=== PATIENT | male | born 1980 | race Caucasian/White ===

== ENCOUNTER 2017-04-15 10:12 | Emergency (ER) | payer BC ==
[~2017-04-15] VITALS: Ht 172.7 cm; Wt 82.1 kg
[2017-04-15 10:14] VITALS: BP 143/83; PULSE 76; TEMP 36.5; O2SAT 97; Ht 172.7 cm; Wt 82.1 kg
[2017-04-15] MEDS ORDERED: LIDOCAINE HCL 1% 20 ML VIAL ONE (10:29)
--- NOTE | 2017-04-15 16:22 | EMERGENCY ROOM VISIT NOTE ---
History First contact with patient: 10:22 Chief Complaint: LACERATION/CUT (SUT/DERMABOND) Stated Complaint: CUT FINGER Nursing Triage Summary: pt cut thumb with kitchen knife History of Present Illness The patient is a 36 year old male who presents to the Emergency Room with complaints of a laceration to his right thumb. The patient reports accidentally cutting it with a ceramic knife. He does report notable bleeding, and rates his discomfort a 5 out of 10. The patient is [id number]. Tetanus immunization is up-to-date. Review of Systems 6 system review was performed and was negative except for pertinent positives and negatives as indicated in history of present illness Past Medical/Surgical History Medical Problems: (1) No significant past medical history Surgical Problems: (1) No history of previous surgery Family History Unremarkable Social History Smoking Status: Never Smoker Alcohol Use: occasionally Marital Status: Housing Status: lives with family Occupation Status: employed Current/Historical Medications No Active Prescriptions or Reported Meds Physical Exam Vital Signs Date Time Temp Pulse Resp B/P (MAP) Pulse Ox O2 Delivery O2 Flow Rate FiO2 04/15/17 10:14 36.5 76 18 143/83 97 Room Air Physical Exam CONSTITUTIONAL: Healthy and well nourished. Alert and oriented X 3 with positive affect. HEENT: Normocephalic, atraumatic. Pupils equal, round and reactive. MUSCULOSKELETAL: Examination of the right thumb pad shows a 4 cm laceration with notable gaping and mild active bleeding. The laceration does not involve the nail plate. Capillary refill is less than 2 seconds. He is able to flex the finger against resistance. INTEGUMENTARY: No rash or other significant dermatologic conditions noted. NEUROLOGIC: Right thumb tip is sensory intact. Medical Decision & Procedures Procedure Laceration repair was performed under digital block anesthesia after receiving verbal consent from the patient. Using buffered 1% lidocaine without epinephrine, good digital block anesthesia was administered. Was then peripherally cleansed with iodine, then irrigated with approximately 150 mL of normal saline. The wound was then approximated using 5-0 nylon simple interrupted sutures. Bacitracin dressing was applied. The patient tolerated procedure well without any significant blood loss. ED Course Patient history and physical exam were performed. Nurse's notes were reviewed. Vital signs were reviewed and were also normal. Laceration repair was performed under digital block anesthesia. The patient was provided additional verbal and written wound care instructions. Ice and elevation for swelling. Ibuprofen and Tylenol as needed for pain. Suture removal in 12-14 days, or seek reevaluation sooner for any signs of wound infection. He will plan of care , voice understanding of all discharge instructions, and denied any pain at the conclusion of my exam. Medical Decision Blood Pressure Screening Patient's blood pressure: Normal blood pressure Impression Primary Impression: Laceration of right thumb Departure Information Dispostion Home / Self-Care Condition GOOD Prescriptions No Active Prescriptions or Reported Meds Forms HOME CARE DOCUMENTATION FORM, IMPORTANT VISIT INFORMATION Patient Instructions My [facility] Additional Instructions Keep wound clean and dry. Do not allow any crusting or dried blood to accumulate on sutures. If this occurs, use a 1:1 solution of hydrogen peroxide/ water on a Q-tip to clean the wound. Use an antibiotic ointment for 3-4 days, then let wound dry. Suture removal in 12-14 days. Return sooner for any signs of infection (increasing redness, swelling, drainage). Ice and elevate for swelling and pain. Ibuprofen 600 mg and Tylenol 1000 mg every 6 hrs as needed for pain. Problem Qualifiers Primary Impression: Laceration of right thumb Encounter type: initial encounter Damage to nail status: without damage Foreign body presence: without foreign body Qualified Codes: S61.011A - Laceration without foreign body of right thumb without damage to nail, initial encounter
== END 2017-04-15 11:32 | disposition home or self-care (01) ==
LOC: C.EDB 10:14 → C.EDA 11:32
DX: S61.011A Laceration without foreign body of right thumb without damage to nail, initial encounter (principal); W26.0XXA Contact with knife, initial encounter